=== PATIENT | male | born 1990 | race Caucasian/White ===

== ENCOUNTER 2017-02-05 03:45 | Emergency (ER) | payer OTHER ==
--- NOTE | 2017-02-05 04:15 | EDPHY ---
H & P Stated Complaint: swollen jaw, and throat Time Seen by Provider: 02/05/17 03:53 HPI/ROS: HPI The patient presents with 1 day of bilateral neck swelling which she awoke with yesterday. It was manageable during the day yesterday, however became worse tonight, so he comes into the emergency department. The swelling is slightly worse on the right side, is painful, radiates upwards toward his pre auricular region. He took Advil and Sudafed without any improvement in his symptoms. He has not had a fever, sore throat, drooling. He has not had a toothache or any recent dental work. He does report and earache. He had a flu vaccination recently, he is otherwise up-to-date on his immunizations.. REVIEW OF SYSTEMS Constitutional: No fever, no chills. Eyes: No discharge. ENT: No sore throat. Cardiovascular: No chest pain, no palpitations. Respiratory: No cough, no shortness of breath. Gastrointestinal: No abdominal pain, no vomiting. Genitourinary: No hematuria. Musculoskeletal: No back pain. Skin: No rashes. Neurological: No headache. PMHx: Healthy PHYSICAL General Appearance: Alert, no distress Eyes: Pupils equal and round no pallor or injection ENT, Mouth: Mucous membranes moist, there is bilateral edema at the angle of the mandible, submandibular space, pre auricular region bilaterally which is slightly tender, there is no overlying skin change, there is no submental fullness, posterior pharynx is slightly erythematous without exudates, there is no trismus, TMs clear bilaterally Respiratory: There are no retractions, lungs are clear to auscultation Cardiovascular: Regular rate and rhythm Gastrointestinal: Abdomen is soft and non-tender, no masses, bowel sounds normal Neurological: A&O, moves all extremities Skin: Warm and dry, no rashes Musculoskeletal: Neck is supple non tender Extremities: symmetrical, full range of motion Psychiatric: Patient is oriented X 3, there is no agitation Source: Patient Exam Limitations: No limitations - Personal History Current Tetanus Diphtheria and Acellular Pertussis (TDAP): Yes - Medical/Surgical History Hx Asthma: No Hx Chronic Respiratory Disease: No Hx Diabetes: No Hx Cardiac Disease: No Hx Renal Disease: No Hx Cirrhosis: No Hx Alcoholism: No Hx HIV/AIDS: No Hx Splenectomy or Spleen Trauma: No - Social History Smoking Status: Never smoked Constitutional: Initial Vital Signs Temperature (C) 36.5 C 02/05/17 03:49 Heart Rate 61 02/05/17 03:49 Respiratory Rate 20 02/05/17 03:49 Blood Pressure 113/77 02/05/17 03:49 O2 Sat (%) 99 02/05/17 03:49 O2 Delivery Mode Room Air Allergies/Adverse Reactions: No Known Allergies Allergy (Unverified 02/05/17 03:48) Home Medications: Medication Instructions Recorded NK [No Known Home Meds] 02/05/17 Medical Decision Making Differential Diagnosis: This is a 27-year-old healthy male who presents with 1 day of bilateral facial fullness along the angle of his mandible. On exam, he appears to have bilateral submandibular gland fullness. He also has erythema of his posterior pharynx, TMs are clear. Differential diagnosis includes sialoadenitis, mumps, mono, strep, viral infection. However, patient has no systemic signs of illness such is fever, malaise, myalgias, anorexia. I doubt Santy's angina given no submental swelling, fever, woody edema. In the emergency department, rapid strep, CBC, Monospot were all negative. The patient continued to feel well. I offered him CT scan maxillofacial, however he declines. He would like to monitor his symptoms. I have recommended he take anti-inflammatory medication. I have given him the follow-up information for your nose and throat. He is able to return if he is worse in any way. - Data Points Laboratory Results: Laboratory Results 02/05/17 04:15 02/05/17 04:15 02/05/17 02/05/17 02/05/17 Unknown 04:15 04:15 WBC RBC Hgb Hct MCV MCH MCHC RDW Plt Count MPV Neut % (Auto) Lymph % (Auto) [place] % (Auto) Eos % (Auto) Baso % (Auto) Nucleat RBC Rel Count Absolute Neuts (auto) Absolute Lymphs (auto) Absolute Monos (auto) Absolute Eos (auto) Absolute Basos (auto) Absolute Nucleated RBC Immature Gran % Immature Gran # Sodium Potassium Chloride Carbon Dioxide Anion Gap BUN Creatinine Estimated GFR Glucose Calcium Total Bilirubin AST ALT Alkaline Phosphatase Total Protein Albumin Monoscreen NEGATIVE (NEGATIVE) Group A Strep Screen NEGATIVE (NEGATIVE) Group A Strep DNA Pending 02/05/17 02/05/17 04:15 04:15 WBC 7.17 10^3/uL 10^3/uL (3.80-9.50) RBC 4.63 10^6/uL 10^6/uL (4.40-6.38) Hgb 14.8 g/dL g/dL (13.7-17.5) Hct 42.5 % % (40.0-51.0) MCV 91.8 fL fL (81.5-99.8) MCH 32.0 pg pg (27.9-34.1) MCHC 34.8 g/dL g/dL (32.4-36.7) RDW 11.7 % % (11.5-15.2) Plt Count 265 10^3/uL 10^3/uL (150-400) MPV 9.6 fL fL (8.7-11.7) Neut % (Auto) 55.3 % % (39.3-74.2) Lymph % (Auto) 30.3 % % (15.0-45.0) [place] % (Auto) 9.6 % % (4.5-13.0) Eos % (Auto) 3.9 % % (0.6-7.6) Baso % (Auto) 0.8 % % (0.3-1.7) Nucleat RBC Rel Count 0.0 % % (0.0-0.2) Absolute Neuts (auto) 3.96 10^3/uL 10^3/uL (1.70-6.50) Absolute Lymphs (auto) 2.17 10^3/uL 10^3/uL (1.00-3.00) Absolute Monos (auto) 0.69 10^3/uL 10^3/uL (0.30-0.80) Absolute Eos (auto) 0.28 10^3/uL 10^3/uL (0.03-0.40) Absolute Basos (auto) 0.06 10^3/uL 10^3/uL (0.02-0.10) Absolute Nucleated RBC 0.00 10^3/uL 10^3/uL (0-0.01) Immature Gran % 0.1 % % (0.0-1.1) Immature Gran # 0.01 10^3/uL 10^3/uL (0.00-0.10) Sodium 138 mEq/L mEq/L (134-144) Potassium 4.2 mEq/L mEq/L (3.5-5.2) Chloride 103 mEq/L mEq/L (97-110) Carbon Dioxide 26 mEq/l mEq/l (22-31) Anion Gap 9 mEq/L mEq/L (8-16) BUN 26 mg/dL H mg/dL (7-23) Creatinine 1.0 mg/dL mg/dL (0.7-1.3) Estimated GFR > 60 Glucose 77 mg/dL mg/dL (70-100) Calcium 9.0 mg/dL mg/dL (8.5-10.4) Total Bilirubin 0.8 mg/dL mg/dL (0.1-1.4) AST 21 IU/L IU/L (17-59) ALT 34 IU/L IU/L (21-72) Alkaline Phosphatase 54 IU/L IU/L (38-126) Total Protein 6.3 g/dL g/dL (6.3-8.2) Albumin 3.8 g/dL g/dL (3.5-5.0) Monoscreen Group A Strep Screen Group A Strep DNA Departure - Departure Disposition: Home, Routine, Self-Care Clinical Impression: Submandibular gland swelling Condition: Good Instructions: Sialoadenitis (ED) Additional Instructions: Please return to the emergency department if your worse in any way, if you have any difficulty swallowing, fever. I recommend you take ibuprofen 400 mg and acetaminophen 650 mg every 6 hours as needed for pain. 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 Referrals: Cassia Sherman MD [Medical Doctor] - As per Instructions
[2017-02-05 04:28] LABS: PLATELET COUNT 265 10^3/uL (150-400)
[2017-02-05 05:06] VITALS: BP 116/72; PULSE 71; RESP 16; TEMP 97.9; O2SAT 97
== END 2017-02-05 05:05 | disposition home or self-care (01) ==
DX: K11.8 Other diseases of salivary glands (principal)